=== PATIENT | female | born 2000 | race Caucasian/White ===

== ENCOUNTER 2019-12-11 16:09 | Emergency (ER) | payer MEDICAID ==
[2019-12-11] MEDS ORDERED: TYLENOL EXTRA STRENGTH 500 MG PO STA (16:29)
[2019-12-11] MEDS ORDERED: TYLENOL EXTRA STRENGTH 500 MG ONE (16:35)
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
[2019-12-11 16:55] LABS: Appearance CLOUDY (CLEAR); Bacteria FEW /HPF (NEGATIVE); Bilirubin NEGATIVE (NEGATIVE); Blood NEGATIVE Ery/ul (0-5); Epithelial Cells RARE /HPF (FEW); Glucose NEGATIVE (NEGATIVE); Ketones TRACE (NEGATIVE); Leukocyte Esterase MODERATE (NEGATIVE); Mucus MODERATE /HPF (NEGATIVE); Nitrite NEGATIVE (NEGATIVE); Protein,Urine Dip 100 (Negative); Specific Gravity 1.024 (1.005-1.025); Urobilinogen NEGATIVE mg/dL (0-1); WBC 26-50 /HPF (0-5)
[2019-12-11 16:59] LABS: Budding Yeast Rare /HPF (NEGATIVE)
[2019-12-11] MEDS ORDERED: Macrobid 100MG Capsule PO ONE (19:13)
[2019-12-11] MEDS ORDERED: Macrobid 100MG Capsule ONE (19:15)
[2019-12-11 19:19] VITALS: BP 100/61; PULSE 72
[2019-12-11 20:05] VITALS: O2SAT 97
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
== END 2019-12-11 20:20 | disposition home or self-care (01) ==
LOC: ED 16:09
DX: R68.84 Jaw pain (principal); Y04.2XXA Assault by strike against or bumped into by another person, initial encounter; Y93.9 Activity, unspecified; Y92.009 Unspecified place in unspecified non-institutional (private) residence as the place of occurrence of the external cause; M54.2 Cervicalgia; Z33.1 Pregnant state, incidental
CPT/HCPCS: 70486; 70490; 81001; 84703; 87086; 99284; A9270-GY

== ENCOUNTER 2020-04-25 23:39 | Observation (INO) | payer OTHER ==
[2020-04-26 01:01] VITALS: BP 105/62; PULSE 97; O2SAT 97
[2020-04-26 01:01] LABS: Amphetamine,Urine NEGATIVE (NEGATIVE); Barbiturate,Urine NEGATIVE (NEGATIVE); Benzodiazepine,Urine NEGATIVE (NEGATIVE); Cocaine,Urine NEGATIVE (NEGATIVE); Methadone,Urine NEGATIVE (NEGATIVE); Opiate,Urine NEGATIVE (NEGATIVE); PCP,Urine NEGATIVE (NEGATIVE); THC,Urine NEGATIVE (NEGATIVE)
[2020-04-26 01:36] LABS: Amourphous Crystal FEW /HPF (NEGATIVE); Appearance CLOUDY (CLEAR); Bilirubin NEGATIVE (NEGATIVE); Blood NEGATIVE Ery/ul (0-5); Epithelial Cells RARE /HPF (FEW); Glucose NEGATIVE (NEGATIVE); Ketones NEGATIVE (NEGATIVE); Leukocyte Esterase NEGATIVE (NEGATIVE); Mucus SLIGHT /HPF (NEGATIVE); Nitrite NEGATIVE (NEGATIVE); Protein,Urine Dip NEGATIVE (Negative); Specific Gravity 1.015 (1.005-1.025); Urobilinogen NEGATIVE mg/dL (0-1)
== END 2020-04-26 01:45 | disposition home or self-care (01) ==
LOC: MED SURG 23:39 → UNDOADMOB 23:39 → OB 23:53 → MED SURG 23:53 → UNDODISOB 04-26 01:45
PROVIDERS: ADMIT Family Medicine; ATTEND Family Medicine
DX: Z34.93 Encounter for supervision of normal pregnancy, unspecified, third trimester (principal); Z3A.34 34 weeks gestation of pregnancy
CPT/HCPCS: 80307; 81001; 84112; G0378

== ENCOUNTER 2020-05-22 07:27 | Inpatient (IN) | payer OTHER ==
[2020-05-22] MEDS ORDERED: OB EPIDURAL NAROPIN/SUFENTANIL IN NACL EPIDURAL PRN (07:43)
[2020-05-22] MEDS ORDERED: Lactated Ringers 1,000 ML IV ONE ×2 (07:43)
[2020-05-22] MEDS ORDERED: Ephedrine Sulfate 50 MG/ML IV PRN (07:43)
[2020-05-22] MEDS ORDERED: Zofran 4 MG/2 ML VIAL IV PRN (07:43)
[2020-05-22] MEDS ORDERED: PITOCIN 30 UNITS/ LR 500 ML 30 UNITS/500 ML IV.SOLN. IV SCH ×2 (08:00→12:00)
[2020-05-22] MEDS ORDERED: Lactated Ringers 1,000 ML IV SCH (08:00)
[2020-05-22 08:24] LABS: Absolute Neutrophil Ct (ANC) 12.74 (1.4-6.9); BASOPHIL % 0.1 % (0.0-0.4); Basophil (Absolute #) 0.02 (0-0.4); Eosinophil % 0.3 % (0.00-5.0); Eosinophil (Absolute #) 0.04 (0-0.5); Hematocrit 38.2 % (35-47); Hemoglobin 12.7 gm/dl (12.0-16.0); Lymphocyte (Absolute #) 1.99 (1.0-4.6); Lymphocytes % 12.6 % (24.0-44.0); Mean Cell Volume 85.8 fl (78-100); Mean Corpuscular Hemoglobin 28.5 pg (26-32); Mean Corpuscular Hgb Concent. 33.2 g/dl (32-36); Mean Platelet Volume 11.6 fl (7.5-11.0); Monocytes % 6.3 % (0.0-12.0); Neutrophil % 80.7 % (36.0-66.0); Platelet Count 185 K/mm3 (150-450); Red Blood Count 4.45 M/mm3 (4.1-5.4); White Blood Count 15.8 K/mm3 (4.0-10.5)
[2020-05-22] MEDS ORDERED: XYLOCAINE 1% HCL 20 ML MDV ONE (08:51)
[2020-05-22] MEDS ORDERED: Mylicon 80MG PO PRN (09:37)
[2020-05-22] MEDS ORDERED: Adacel Vial IM ONE (09:37)
[2020-05-22] MEDS ORDERED: Dulcolax 10 MG SUPP PR PRN (09:37)
[2020-05-22] MEDS ORDERED: TUCKS TP PRN (09:37)
[2020-05-22] MEDS ORDERED: Dermoplast Spray TP PRN (09:37)
[2020-05-22] MEDS ORDERED: Anucort-HC SUPPOSITORY PR PRN (09:37)
[2020-05-22] MEDS ORDERED: NORCO 5/325 MG PO PRN (09:37)
[2020-05-22] MEDS ORDERED: LANSINOH 40 GM TOP PRN (09:37)
[2020-05-22] MEDS: Colace 100 MG PO SCH ×2 (10:24→21:10)
[2020-05-22] MEDS: MOTRIN 400 MG PO PRN ×2 (10:24→21:19)
[2020-05-22] MEDS: FERREX 150 PO SCH (10:25)
[2020-05-22 10:59] LABS: Amphetamine,Urine NEGATIVE (NEGATIVE); Barbiturate,Urine NEGATIVE (NEGATIVE); Benzodiazepine,Urine NEGATIVE (NEGATIVE); Cocaine,Urine NEGATIVE (NEGATIVE); Methadone,Urine NEGATIVE (NEGATIVE); Opiate,Urine NEGATIVE (NEGATIVE); PCP,Urine NEGATIVE (NEGATIVE); THC,Urine NEGATIVE (NEGATIVE)
[2020-05-22] MEDS ORDERED: XYLOCAINE 1% HCL 20 ML MDV IJ PRN (11:26)
[2020-05-22] MEDS: TYLENOL EXTRA STRENGTH 500 MG PO PRN (12:26)
[2020-05-23 04:52] LABS: Absolute Neutrophil Ct (ANC) 8.64 (1.4-6.9); BASOPHIL % 0.2 % (0.0-0.4); Basophil (Absolute #) 0.02 (0-0.4); Eosinophil % 0.9 % (0.00-5.0); Eosinophil (Absolute #) 0.11 (0-0.5); Hemoglobin 9.6 gm/dl (12.0-16.0); Lymphocyte (Absolute #) 2.18 (1.0-4.6); Lymphocytes % 18.5 % (24.0-44.0); Mean Cell Volume 89.3 fl (78-100); Mean Corpuscular Hemoglobin 28.6 pg (26-32); Mean Platelet Volume 11.5 fl (7.5-11.0); Monocyte (Absolute #) 0.83 (0.0-1.3); Neutrophil % 73.4 % (36.0-66.0); Platelet Count 153 K/mm3 (150-450); Red Blood Count 3.36 M/mm3 (4.1-5.4); Red Cell Distribution Width 13.2 % (11.5-14.0); White Blood Count 11.8 K/mm3 (4.0-10.5)
[2020-05-23] MEDS: TYLENOL EXTRA STRENGTH 500 MG PO PRN ×2 (09:06→21:54)
[2020-05-23] MEDS: FERREX 150 PO SCH (09:06)
[2020-05-23] MEDS: Colace 100 MG PO SCH ×2 (09:06→21:51)
[2020-05-23] MEDS: MOTRIN 400 MG PO PRN (14:59)
--- NOTE | 2020-05-24 07:46 | PCM.DS ---
Discharge Summary Date of Admission: 05/22/20 07:27 Admitting Physician: NAM SCHWARZ Primary Care Provider: NAM SCHWARZ Allergies Allergies amoxicillin Allergy (Verified 05/22/20 10:00) Hospital Summary - Hospital Course Hospital Course: Pt is pt of Dr. Schwarz who came in at 38w 4d at 6cm and delivered viable 7lb male , vaginally. She did have a second degree vaginal laceration. . Her bleeding is not heavy. She is not having much pain. Will be discharged to home today. - Vitals & Intake/Output Vital Signs: Vital Signs Temperature 98.6 F 05/24/20 01:57 Pulse Rate 98 H 05/24/20 01:57 Respiratory Rate 18 05/24/20 01:57 Blood Pressure 108/62 05/24/20 01:57 O2 Sat by Pulse Oximetry 97 05/24/20 01:57 Intake & Output: Intake & Output 05/21/20 05/22/20 05/23/20 05/24/20 11:59 11:59 11:59 11:59 Intake Total 4200 2700 Balance 4200 2700 Weight 63.503 kg - Lab Result Diagrams: 05/23/20 04:30 Lab Results-Last 24 Hrs: Lab Results-Last 24 Hours 05/22/20 Range/Units 08:05 Hep Bs Antigen Negative (Negative) Discharge Exam General Appearance: no apparent distress, alert Neurologic Exam: oriented x 3, cooperative Eye Exam: eyes nml inspection Ears, Nose, Throat Exam: moist mucous membranes Neck Exam: normal inspection, non-tender, No lymphadenopathy Respiratory Exam: normal breath sounds, lungs clear, No crackles/rales, No rhonchi, No wheezing Cardiovascular Exam: regular rate/rhythm, normal heart sounds, No murmur Gastrointestinal/Abdomen Exam: soft, normal bowel sounds, other (fundus firm inferior to umbilicus) Back Exam: normal inspection, No rash Extremity Exam: normal inspection, No swelling Skin Exam: normal color, warm, dry, No rash Final Diagnosis/Problem List - Final Discharge Diagnosis/Problem (1) Spontaneous vaginal delivery Current Visit: Yes Status: Acute Assessment & Plan: PPD #2, doing great, home today with baby. Code(s): O80 - ENCOUNTER FOR FULL-TERM UNCOMPLICATED DELIVERY (2) Anemia Current Visit: Yes Status: Acute Assessment & Plan: Home on iron. Code(s): D64.9 - ANEMIA, UNSPECIFIED - Discharge Disposition: Home, Self-Care Condition: Good Prescriptions: New Ferrous Sulfate 325 mg PO DAILY #30 tablet Ibuprofen 600 mg PO TID PRN #35 tablet PRN Reason: Pain Continue Levothyroxine Sodium 50 Mcg [Synthroid 50 Mcg] 1 tablet PO DAILY Follow up with: NAM SCHWARZ MD [Primary Care Provider] -
[2020-05-24] MEDS: FERREX 150 PO SCH (09:13)
[2020-05-24] MEDS: MOTRIN 400 MG PO PRN (09:13)
[2020-05-24] MEDS: Colace 100 MG PO SCH (09:13)
[2020-05-24 14:10] VITALS: BP 118/78; PULSE 111; O2SAT 98
== END 2020-05-24 11:50 | disposition home or self-care (01) | DRG 807 ==
LOC: OB 07:27 → OBSVTOIN 07:27
PROVIDERS: ADMIT Family Medicine; ATTEND Family Medicine
PROC: 10E0XZZ Delivery of Products of Conception, External Approach (ICD-10-PCS; principal; 2020-05-22)
PROC: 0KQM0ZZ Repair Perineum Muscle, Open Approach (ICD-10-PCS; 2020-05-22)
DX: O70.1 Second degree perineal laceration during delivery (principal); Z37.0 Single live birth; Z3A.38 38 weeks gestation of pregnancy
CPT/HCPCS: 36415; 80307; 85025; 87340; 90471; 90715; G0378; J2590; A9270-GY